=== PATIENT | female | born 1935 | race Hispanic/Latino ===

== ENCOUNTER 2017-09-03 15:32 | Inpatient (IN) | payer MEDICARE, BC ==
[2017-09-03 15:32] VITALS: BMI 19.5
[2017-09-03] MEDS ORDERED: Morphine 4 mg/ml ISec IVP STA (16:00)
--- NOTE | 2017-09-03 16:07 | ED PDOC ---
Arrival/HPI - General Chief Complaint: Abdominal Pain Time Seen by Provider: 09/03/17 15:58 - History of Present Illness Narrative History of Present Illness (Text): 81 y/o F c PMHx dementia, pelvic mass with metastases presents from [place] for further evaluation and treatment of malignancy. Ovarian mass had previously ruptured, with build up of ascites. Patient was evaluated at [facility] in [place], [place] where it was determined that she could not have an operation. Patient was in hospice care with DNR/DNI/DNH orders. , patient 's proxy, has since rescinded the hospice order and would like patient to be further treated in hospital. Patient denies pain, dyspnea, or discomfort. She is unaware of where she is or why she is here. Past Medical History - Infectious Disease Hx of Infectious Diseases: None - Cardiac Hx Pacemaker: No - Pulmonary Hx Respiratory Disorders: No - Neurological Hx Dementia: Yes - HEENT Hx HEENT Disorder: No - Renal Hx Renal Disorder: No - Endocrine/Metabolic Hx Endocrine Disorders: No - Hematological/Oncological Hx Cancer: Yes (pelvic) - Integumentary Hx Dermatological Disorder: No - Musculoskeletal/Rheumatological Hx Falls: Yes - Gastrointestinal Hx Gastrointestinal Disorders: Yes Other/Comment: distended abdomen - Genitourinary/Gynecological Hx Genitourinary Disorders: No - Psychiatric Hx Psychophysiologic Disorder: No Hx Substance Use: No - Surgical History Hx Mastectomy: No - Anesthesia Hx Anesthesia Reactions: No Hx Malignant Hyperthermia: No Family/Social History Family/Social History: No Known Family HX Smoking Status: Never Smoked Hx Alcohol Use: No Hx Substance Use: No Allergies/Home Meds Allergies/Adverse Reactions: Allergies No Known Allergies Allergy (Unverified 08/08/17 10:01) Home Medications: Home Meds Medication Instructions Recorded Confirmed Acetaminophen [Tylenol 120mg supp] 650 mg PO Q4H PRN 09/03/17 09/03/17 Albuterol/Ipratropium [Duoneb 3 1 vial IH Q8H PRN 09/03/17 09/03/17 mg/0.5 mg (3 ml) UD] Lorazepam [Lorazepam Intensol] 0.5 ml SL Q6H PRN 09/03/17 09/03/17 Morphine Sulfate [Morphine Oral 0.25 ml SL Q6H PRN 09/03/17 09/03/17 Soln] Review of Systems - Review of Systems Systems not reviewed;Unavailable: Dementia Physical Exam - Physical Exam Narrative Physical Exam (Text): Gen: NAD Head: Atraumatic Eyes: No scleral icterus ENT: MMM Neck: Supple Chest: No tenderness CV: Regular rate Lungs: CTA b/l Abd: Distended, large firm palpable mass. No obvious tenderness Extremities: Lower extremities in padding, ecchymoses to bilateral arms Skin: As above Neuro: Alert, oriented x 1. Vital Signs Temp Pulse Resp BP Pulse Ox 09/03/17 17:57 79 18 113/78 97 09/03/17 15:52 98.2 F 81 18 97 09/03/17 15:32 97 H 18 115/86 97 Medical Decision Making ED Course and Treatment: Morphine administered for chronic pain. EKG Sinus rhythm 100 bpm, no ST elevations, poor baseline. Dr. Kraft agrees with admission to his service, recommends Dr. Francois Grover be consulted for ascites drainage. Pending CT, then admit to Dr. Kraft. Signed out to ED night doctor at change of shift. - Lab Interpretations Lab Results: 09/03/17 17:34 09/03/17 17:34 Lab Results 09/03/17 17:34: Blood Type O POSITIVE, Antibody Screen Negative, BBK History Checked Patient has bt 09/03/17 17:34: Sodium 164 H*, Potassium 3.0 L, Chloride 121 H, Carbon Dioxide 28, Anion Gap 18, BUN 17, Creatinine 0.4 L, Est GFR ( Amer) > 60, Est GFR (Non-Af Amer) > 60, Random Glucose 88, Calcium 8.7, Total Bilirubin 0.8, AST 18, ALT 19, Alkaline Phosphatase 100, Total Protein 6.3, Albumin 2.6 L, Globulin 3.7, Albumin/Globulin Ratio 0.7 L 09/03/17 17:34: PT 16.3 H, INR 1.42 H, APTT 42.5 H 09/03/17 17:34: WBC 17.0 H, RBC 3.12 L, Hgb 8.3 L, Hct 28.3 L, MCV 90.7, MCH 26.6, MCHC 29.3 L, RDW 16.8 H, Plt Count 365, MPV 9.9, Gran % 88.5 H, Lymph % ( Auto) 5.5 L, [place] % (Auto) 4.6, Eos % (Auto) 1.3 L, Baso % (Auto) 0.1, Gran # 15.07 H, Lymph # (Auto) 0.9 L, [place] # (Auto) 0.8 H, Eos # (Auto) 0.2, Baso # ( Auto) 0.01 - RAD Interpretation Radiology Orders: 09/03/17 15:58 ABD & PELVIS IV CONTRAST ONLY [CT] Stat CHEST PORTABLE [RAD] Stat - Medication Orders Current Medication Orders: Discontinued Medications Morphine Sulfate (Morphine) 2 mg IVP STAT STA Stop: 09/03/17 16:01 Disposition/Present on Arrival - Present on Arrival Any Indicators Present on Arrival: No History of DVT/PE: No History of Uncontrolled Diabetes: No Urinary Catheter: No History of Decub. Ulcer: No History Surgical Site Infection Following: None - Disposition Have Diagnosis and Disposition been Completed?: Yes Diagnosis: Ovarian mass, Hypernatremia Disposition Time: 19:02 Condition: GUARDED Forms: [employer] (Italian)
[2017-09-03 18:04] LABS: BASO # 0.01 K/mm3 (0.0-2.0); BASO % 0.1 % (0.0-3.0); EOS # 0.2 (0.0-0.7); EOS % 1.3 % (1.5-5.0); GRAN # 15.07 (1.4-6.5); GRAN % 88.5 % (50.0-68.0); HEMOGLOBIN 8.3 g/dL (12.0-16.0); LYMPH # 0.9 (1.2-3.4); LYMPH % 5.5 % (22.0-35.0); MEAN CELL VOLUME 90.7 fl (80.0-105.0); MEAN CORPUSCULAR HEMOGLOBIN 26.6 pg (25.0-35.0); MEAN CORPUSCULAR HGB CONC 29.3 g/dl (31.0-37.0); MEAN PLATELET VOLUME 9.9 fl (7.0-11.0); MONO # 0.8 (0.1-0.6); MONO % 4.6 % (1.0-6.0); RBC 3.12 10^6/uL (3.5-6.1); RED CELL DISTRIBUTION WIDTH 16.8 % (11.5-14.5)
[2017-09-03 18:11] LABS: INR 1.42 (0.93-1.08); PARTIAL THROMBOPLASTIN TIME 42.5 Seconds (25.1-36.5); PROTHROMBIN TIME 16.3 SECONDS (9.4-12.5)
[2017-09-03 18:25] LABS: ALB/GLOB RATIO 0.7 (1.1-1.8); ALBUMIN 2.6 g/dL (3.0-4.8); ALT/SGPT 19 U/L (7-56); AST/SGOT 18 U/L (14-36); BLOOD UREA NITROGEN 17 mg/dL (7-21); CALCIUM 8.7 mg/dL (8.4-10.5); GFR AFRICAN-AMERICAN > 60; GFR NON-AFRICAN AMERICAN > 60
[2017-09-03] MEDS ORDERED: Iohexol 350 MG/100 ML VIAL ONE (19:28)
--- NOTE | 2017-09-03 21:48 | ED PDOC ---
Physical Exam Vital Signs Temp Pulse Resp BP Pulse Ox 09/03/17 17:57 79 18 113/78 97 09/03/17 15:52 98.2 F 81 18 97 09/03/17 15:32 97 H 18 115/86 97 Medical Decision Making ED Course and Treatment: 09/03/17 19:00 Case endorsed to me by yoshi Smith CT scan and hospital admission. 09/04/17 00:24 CT Abdomen and Pelvis shows: Lung bases: Moderate bilateral pleural effusions are identified. Consolidations are seen within both lower lobes, consistent with atelectatic change or infiltrates. Heart: There is coronary artery calcification. ABDOMEN: Liver: There is mild lobulation of the hepatic contour, suggestive of hepatocellular disease and cirrhosis. Gallbladder and bile ducts: No calcified stones. Pancreas: Normal contour, without acute peripancreatic stranding. Spleen: No splenomegaly. Adrenals: No mass. Kidneys and ureters: There is stable parenchymal scarring of the right kidney at the midpole. An additional linear band of hypodensity is seen involving the right renal cortex at the midpole, suggestive of parenchymal scarring or infarct. There is no hydronephrosis bilaterally. Stomach and bowel: Air-fluid levels are identified within the colon, new compared to the prior study. Obstruction cannot be excluded. There is mild wall thickening of a small bowel loop within the central abdomen, suggestive of enteritis. PELVIS: Appendix: The appendix is not visualized. Bladder: A Boss catheter is visualized within the bladder with foci of gas. The bladder is decompressed. These foci of gas are presumed to be iatrogenic. Reproductive: There is a large complex multiloculated cystic mass or masses centrally within the pelvis and lower abdomen. This measures approximately 17.9 x 11.7 x 18.2 cm. There is a slight increase in size compared to the prior study. Abdominal and pelvic ascites is again visualized, without significant progression. This fluid can be contributed by extravasation of fluid from the cystic mass within the abdomen and pelvis. ABDOMEN and PELVIS: Intraperitoneal space: See above. Bones/joints: Streaking artifact is associated with a right hip prosthesis there Hypertrophic degenerative changes are noted within the spine. There is scoliosis of the thoraco-lumbar spine. Vasculature: There is atherosclerotic calcification of the abdominal aorta. No abdominal aortic aneurysm. Lymph nodes: No enlarged lymph nodes. IMPRESSION: 1. There is a large complex multiloculated cystic mass or masses centrally within the pelvis and lower abdomen. This measures approximately 17.9 x 11.7 x 18.2 cm. There is a slight increase in size compared to the prior study. 2. Abdominal and pelvic ascites is again visualized, without significant progression. This fluid can be contributed by extravasation of fluid from the cystic mass within the abdomen and pelvis. 3. There is mild lobulation of the hepatic contour, suggestive of hepatocellular disease and cirrhosis. 4. There is stable parenchymal scarring of the right kidney at the midpole. An additional linear band of hypodensity is seen involving the right renal cortex at the midpole, suggestive of parenchymal scarring or infarct. 5. Air-fluid levels are identified within the colon, new compared to the prior study. Obstruction cannot be excluded. Clinical correlation is recommended. 6. There is mild wall thickening of a small bowel loop within the central abdomen, suggestive of enteritis. 7. Moderate bilateral pleural effusions are identified. Consolidations are seen within both lower lobes, consistent with atelectatic change or infiltrates. 8. Additional CT findings described above. 09/04/17 00:[address] Kraft, who is aware and agrees with plan. Pt admitted to [facility] for ascites under Dr. Kraft's service. - Lab Interpretations Lab Results: 09/03/17 17:34 09/03/17 17:34 Lab Results 09/03/17 22:13: Urine Color Dark yellow, Urine Appearance Slight-cloudy, Urine pH 6.0, Ur Specific [place] >= 1.030, Urine Protein 100 H, Urine Glucose (UA) Negative, Urine Ketones 40 H, Urine Blood Large H, Urine Nitrate Positive H, Urine Bilirubin Moderate H, Urine Urobilinogen 2.0 H, Ur Leukocyte Esterase Trace H, Urine RBC 1 - 3, Urine WBC 5 - 10, Ur Epithelial Cells 4 - 5, Urine Bacteria Small, Hyaline Casts 0 - 2 09/03/17 17:34: Blood Type O POSITIVE, Antibody Screen Negative, BBK History Checked Patient has bt 09/03/17 17:34: Sodium 164 H*, Potassium 3.0 L, Chloride 121 H, Carbon Dioxide 28, Anion Gap 18, BUN 17, Creatinine 0.4 L, Est GFR ( Amer) > 60, Est GFR (Non-Af Amer) > 60, Random Glucose 88, Calcium 8.7, Total Bilirubin 0.8, AST 18, ALT 19, Alkaline Phosphatase 100, Total Protein 6.3, Albumin 2.6 L, Globulin 3.7, Albumin/Globulin Ratio 0.7 L 09/03/17 17:34: PT 16.3 H, INR 1.42 H, APTT 42.5 H 09/03/17 17:34: WBC 17.0 H, RBC 3.12 L, Hgb 8.3 L, Hct 28.3 L, MCV 90.7, MCH 26.6, MCHC 29.3 L, RDW 16.8 H, Plt Count 365, MPV 9.9, Gran % 88.5 H, Lymph % ( Auto) 5.5 L, [place] % (Auto) 4.6, Eos % (Auto) 1.3 L, Baso % (Auto) 0.1, Gran # 15.07 H, Lymph # (Auto) 0.9 L, [place] # (Auto) 0.8 H, Eos # (Auto) 0.2, Baso # ( Auto) 0.01 - RAD Interpretation Radiology Orders: 09/03/17 15:58 ABD & PELVIS IV CONTRAST ONLY [CT] Stat CHEST PORTABLE [RAD] Stat Joiner Helper: Radiologist - Medication Orders Current Medication Orders: Discontinued Medications Morphine Sulfate (Morphine) 2 mg IVP STAT STA Stop: 09/03/17 16:01 Last Admin: 09/03/17 22:23 Dose: 2 mg MAR Pain Assessment Document 09/03/17 22:23 LA (Rec: 09/03/17 22:24 LA [id number]) Pain Reassessment Is this a pain reassessment? Yes Sleep Is patient sleeping during reassessment? No Presence of Pain Presence of Pain Yes Pain Scale Used Pain Scale Used Numeric Location Left, Right or Bilateral Right Pain Location Body Site Abdomen IVP Administration Document 09/03/17 22:23 LA (Rec: 09/03/17 22:24 LA [id number]) Charges for Administration # of IVP Administrations 1 Morphine Sulfate (Morphine) 2 mg IVP STAT STA Stop: 09/03/17 22:21 Last Admin: 09/03/17 22:21 Dose: 2 mg MAR Pain Assessment Document 09/03/17 22:21 LA (Rec: 09/03/17 22:50 LA [id number]) Pain Reassessment Is this a pain reassessment? Yes Sleep Is patient sleeping during reassessment? No Presence of Pain Presence of Pain Yes Pain Scale Used Pain Scale Used Numeric Location Left, Right or Bilateral Right Pain Location Body Site Abdomen Description Pain Behavior Moaning IVP Administration Document 09/03/17 22:21 MAGUI (Rec: 09/03/17 22:50 MAGUI [id number]) Charges for Administration # of IVP Administrations 1 Disposition/Present on Arrival - Present on Arrival Any Indicators Present on Arrival: No History of DVT/PE: No History of Uncontrolled Diabetes: No Urinary Catheter: No History of Decub. Ulcer: No History Surgical Site Infection Following: None - Disposition Have Diagnosis and Disposition been Completed?: Yes Diagnosis: Ovarian mass, Hypernatremia Disposition: HOSPITALIZED Disposition Time: 00:20 Condition: GUARDED
[2017-09-03] MEDS: Morphine 4 mg/ml ISec IVP STA (22:21)
[2017-09-03 22:57] LABS: URINE BILIRUBIN MODERATE (NEGATIVE); URINE BLOOD LARGE (NEGATIVE); URINE GLUCOSE (UA) NEGATIVE (NEGATIVE); URINE LEUKOCYTE ESTERASE TRACE Leu/uL (NEGATIVE); URINE PROTEIN 100 mg/dL (<30 mg/dL)
[2017-09-03 23:07] LABS: URINE APPEARANCE SLIGHT-CLOUDY (CLEAR); URINE COLOR DARK YELLOW (YELLOW)
[2017-09-03 23:19] LABS: URINE BACTERIA SMALL (NEG); URINE HYALINE CAST 0 - 2 /hpf
--- NOTE | 2017-09-04 00:25 | CT ---
EXAM: CT Abdomen and Pelvis With Intravenous Contrast EXAM DATE/TIME: 09/03/2017 3:58 PM CLINICAL HISTORY: The patient age is 81 years old and is female; Signs and symptoms; Other: Swelling; Additional info: Abdominal swelling Facility exam id and description: Ct abdpelciv abd pelvis iv contrast only TECHNIQUE: Axial computed tomography images of the abdomen and pelvis with intravenous contrast. All CT scans at this facility use one or more dose reduction techniques, viz.: automated exposure control; ma/kV adjustment per patient size (including targeted exams where dose is matched to indication; i.e. head); or iterative reconstruction technique. Coronal and sagittal reformatted images were created and reviewed. CONTRAST: 100 mL of omnipaque 350 administered intravenously. COMPARISON: CT - CHEST,ABD,PEL W/IV CONT ONLY 2017-08-20 14:14 FINDINGS: Lung bases: Moderate bilateral pleural effusions are identified. Consolidations are seen within both lower lobes, consistent with atelectatic change or infiltrates. Heart: There is coronary artery calcification. ABDOMEN: Liver: There is mild lobulation of the hepatic contour, suggestive of hepatocellular disease and cirrhosis. Gallbladder and bile ducts: No calcified stones. Pancreas: Normal contour, without acute peripancreatic stranding. Spleen: No splenomegaly. Adrenals: No mass. Kidneys and ureters: There is stable parenchymal scarring of the right kidney at the midpole. An additional linear band of hypodensity is seen involving the right renal cortex at the midpole, suggestive of parenchymal scarring or infarct. There is no hydronephrosis bilaterally. Stomach and bowel: Air-fluid levels are identified within the colon, new compared to the prior study. Obstruction cannot be excluded. There is mild wall thickening of a small bowel loop within the central abdomen, suggestive of enteritis. PELVIS: Appendix: The appendix is not visualized. Bladder: A Boss catheter is visualized within the bladder with foci of gas. The bladder is decompressed. These foci of gas are presumed to be iatrogenic. Reproductive: There is a large complex multiloculated cystic mass or masses centrally within the pelvis and lower abdomen. This measures approximately 17.9 x 11.7 x 18.2 cm. There is a slight increase in size compared to the prior study. Abdominal and pelvic ascites is again visualized, without significant progression. This fluid can be contributed by extravasation of fluid from the cystic mass within the abdomen and pelvis. ABDOMEN and PELVIS: Intraperitoneal space: See above. Bones/joints: Streaking artifact is associated with a right hip prosthesis there Hypertrophic degenerative changes are noted within the spine. There is scoliosis of the thoraco-lumbar spine. Vasculature: There is atherosclerotic calcification of the abdominal aorta. No abdominal aortic aneurysm. Lymph nodes: No enlarged lymph nodes. IMPRESSION: 1. There is a large complex multiloculated cystic mass or masses centrally within the pelvis and lower abdomen. This measures approximately 17.9 x 11.7 x 18.2 cm. There is a slight increase in size compared to the prior study. 2. Abdominal and pelvic ascites is again visualized, without significant progression. This fluid can be contributed by extravasation of fluid from the cystic mass within the abdomen and pelvis. 3. There is mild lobulation of the hepatic contour, suggestive of hepatocellular disease and cirrhosis. 4. There is stable parenchymal scarring of the right kidney at the midpole. An additional linear band of hypodensity is seen involving the right renal cortex at the midpole, suggestive of parenchymal scarring or infarct. 5. Air-fluid levels are identified within the colon, new compared to the prior study. Obstruction cannot be excluded. Clinical correlation is recommended. 6. There is mild wall thickening of a small bowel loop within the central abdomen, suggestive of enteritis. 7. Moderate bilateral pleural effusions are identified. Consolidations are seen within both lower lobes, consistent with atelectatic change or infiltrates. 8. Additional CT findings described above.
[2017-09-04] MEDS ORDERED: Sodium Chloride 0.9% 1,000 ML IV STA (00:38)
[2017-09-04] MEDS: Morphine 4 mg/ml ISec IVP STA (01:42)
--- NOTE | 2017-09-04 08:08 | RAD ---
HISTORY: abd pain COMPARISON: Portable chest 08/20/2017. FINDINGS: LUNGS: Left PICC unchanged in position. Mild left pleural effusions now appreciated with underlying airspace disease not excluded the left base medially. Trace right pleural effusion is evident. The right basilar atelectasis or infiltrate is identified. PLEURA: No significant pleural effusion identified, no pneumothorax apparent. CARDIOVASCULAR: Stable cardiac silhouette with borderline pulmonary venous congestion nevertheless. OSSEOUS STRUCTURES: No significant abnormalities. VISUALIZED UPPER ABDOMEN: Normal. OTHER FINDINGS: None. IMPRESSION: Borderline CHF. Mild bilateral pleural effusions seen greater the left and right sides. Limited right basilar atelectasis is favored over with infiltrate with medial basilar airspace disease not excluded.
--- NOTE | 2017-09-04 10:15 | CARD ---
APPROVED REPORT EKG Measurement Heart [id number] <Conclusion> Sinus tachycardia Nonspecific ST and T wave abnormality Electrical artifact present
[2017-09-04] MEDS: Dextrose 5%/0.45% NS 1,000 ML IV SCH ×2 (13:40→21:24)
--- NOTE | 2017-09-05 03:40 | PN ---
DATE: 09/04/2017 The patient seen this morning in room 362, bed 1. She is resting comfortably in bed. Marked lab abnormalities were noted with sodium over 160 as well as elevated BUN. She is receiving normal saline at 100 mL an hour. She appears to be near euvolemic state at this time, so I will change her IV's over to D5 and a half. Repeat morning labs. I spoke with the patient's at great length. In view of the diagnosis of the ovarian CA, do not resuscitate order was written on chart and I also requested a consult with Dr. Francois Grover for possible paracentesis if this will provide the patient with some relief. I asked Dr. Samson, renowned oncologist, to consult as well to see if there is anything that he can do for this unfortunate woman and Palliative Care consultation with Ching Donis was also requested. DNR order written. We will continue to treat and focus on comfort measures and correct her electrolyte abnormalities. Surendra Kraft MD
--- NOTE | 2017-09-05 03:49 | CON ---
DATE: 09/04/2017 This is [facility] consult on the medical floor. For Dr. Samson, CHIEF COMPLAINT: Ovarian CA history. HISTORY OF PRESENT ILLNESS: The patient is an 81-year-old female seen lying awake in bed, lethargic, but arousable with request from her primary doctor, Dr. Kraft for evaluation of her malignancy. The patient appears to be in no acute distress with the records reviewed, labs reviewed and history obtained from previous records from primary doctor with the patient reporting that she denies any pain and is not cold, requiring another blanket at this time. ALLERGIES: NO KNOWN ALLERGIES. MEDICATIONS: The patient's medicines at this point include IV D5 half normal saline, Lasix, Tylenol with analgesics as indicated. FAMILY HISTORY AND SOCIAL HISTORY: She is , nonsmoker, non-ethanolic. Otherwise, noncontributory. REVIEW OF SYSTEMS: Twelve-point review of systems was done, which was negative to questioning except for items mentioned in the history of present illness. PAST MEDICAL HISTORY: The patient's past medical history is significant for recent falls with recently diagnosed ovarian CA with dementia. OBJECTIVE/PHYSICAL EXAMINATION VITAL SIGNS: Temperature 97.2, pulse 92, respirations 21, blood pressure 115/57, pulse ox 97%. HEENT: Unremarkable. NECK: Supple. HEART: Regular rate. Occasional ectopic beat. LUNGS: Decreased breath sounds at the bases. ABDOMEN: Distended with minimal tenderness to general palpation with ascitic fluid wave. EXTREMITIES: No edema. SKIN: Warm and dry. NEUROLOGIC: The patient is lethargic, but arousable. Answers questions after a brief lapse. LABORATORY DATA: The patient's labs were done. White blood cell count of 17,000, hemoglobin is 8.3, hematocrit 28.3, platelet count of 365,000. Chem metabolic panel showing a sodium of 164, potassium of 3, chloride of 121 with an albumin of 2.6. Her INR is 1.42. Urine specimen showed large amount of blood, positive to nitrite, moderate bilirubin. The patient's other tests included an EKG, which was read as sinus tachycardia, nonspecific ST-T changes, electric artifact present. Her chest x-ray was done. It was read as borderline CHF, mild bilateral pleural effusion seen greater on the left than right sides, limited right basilar atelectasis favored over infiltrate with medial basilar airspace disease not excluded. The patient did have a CAT scan of her abdomen and pelvis. It was read as large complex multiloculated cystic mass or masses centrally within the pelvis and lower abdomen measuring approximately 17.9 x 11.7 x 18.2 cm with a slight increase in size compared to prior study. Abdominal and pelvic ascites again visualized without significant progression. Fluid can be contributed to the extravasation of fluid from the cystic mass within the abdomen and pelvis. There is mild lobulation of the hepatic contour suggestive of hepatic with cirrhosis. There is stable parenchymal scarring of the right kidney at the midpole, additional linear band hyperdense was seen involving the right renal cortex suggested parenchymal scarring or infarct. He had fluid levels identified within the colon, new compare with the prior studies, cannot be excluded. Clinical correlation recommended. Mild wall thickening of the small bowel loop within the central abdomen suggestive of enteritis, moderate bilateral pleural effusions were identified. Consolidations were seen within both lower lobes consistent with atelectatic change or infiltrates, additional CT findings as above. The patient did have a recent hospitalization where she had a tissue pathology done for the femoral head for a fracture, displaced right hip fracture with bipolar right hip prosthesis with femoral head fracture site. The patient's other recent testing included a CA125, which was done on 08/08/2017 of 122 along with a TSH, which was 0.3 on 08/12/2017 with the dramatically changed sodium of 164, previous sodium on 08/26/2017 was 148. 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 She is do not resuscitate/do not intubate. PLAN: The plan for this patient after conversation with Dr. Samson is to determine the course of treatment for this patient with consults recommended for Dr. Francois Grover for a palliative paracentesis with reconsideration for more aggressive treatment as per the patient's and family's wishes after consultation with her attending doctor. The prognosis for this patient is poor. We will monitor clinically and with more aggressive recommendations as indicated with repeat of her labs in a.m. as per Dr. Kraft. This is a complex patient with a comprehensive medically necessary and appropriate visit carried out in excess of 40 minutes [id number] time, also reviewing records and conversations held as above. Deshawn Piña MD
[2017-09-05] MEDS: Dextrose 5%/0.45% NS 1,000 ML IV SCH (05:36)
[2017-09-05 06:23] LABS: BASO # 0.02 K/mm3 (0.0-2.0); BASO % 0.2 % (0.0-3.0); EOS # 0.4 (0.0-0.7); EOS % 3.2 % (1.5-5.0); GRAN # 10.51 (1.4-6.5); GRAN % 85.4 % (50.0-68.0); HEMOGLOBIN 7.2 g/dL (12.0-16.0); LYMPH # 0.9 (1.2-3.4); LYMPH % 7.5 % (22.0-35.0); MEAN CELL VOLUME 89.4 fl (80.0-105.0); MEAN CORPUSCULAR HEMOGLOBIN 26.4 pg (25.0-35.0); MEAN CORPUSCULAR HGB CONC 29.5 g/dl (31.0-37.0); MEAN PLATELET VOLUME 9.9 fl (7.0-11.0); MONO # 0.5 (0.1-0.6); MONO % 3.7 % (1.0-6.0); RBC 2.73 10^6/uL (3.5-6.1); RED CELL DISTRIBUTION WIDTH 16.8 % (11.5-14.5); WHITE BLOOD COUNT 12.3 10^3/ul (4.5-11.0)
[2017-09-05 07:00] LABS: ALB/GLOB RATIO 0.6 (1.1-1.8); ALBUMIN 2.1 g/dL (3.0-4.8); ALT/SGPT 17 U/L (7-56); AST/SGOT 16 U/L (14-36); BLOOD UREA NITROGEN 15 mg/dL (7-21); CALCIUM 8.1 mg/dL (8.4-10.5); GFR AFRICAN-AMERICAN > 60; GFR NON-AFRICAN AMERICAN > 60
--- NOTE | 2017-09-05 10:12 | CP.PCM.CON ---
History of Present Illness - History of Present Illness History of Present Illness: Palliative consult requested by Dr Amanda Kraft Reason: Goals of care 81 year old female with history of ovarian cancer, hip fracture s/p ORIF who was receiving hsoice care at [facility]. The patients rescinded hospice and had her brought to ED for evaluation of weakness, anorexia, dyspahgia.Chest x ray showing mild bilateral pleural effusions, L> R. CT of abdomen reveals a large cystic mass within the lower pelvis, ascites, hepatocellular disease, parenchymal scarring of right pole of kidney, air fluid levels within the colon and probable enteritis. Labs; WBC 17.0, Hgb 8.3,NA 164, calcium 8.7. PMHx:Ovarion cancer, dementia, hip fracture s/p ORIF, anasarca, dysphagia, deconditioning. Social History: Non smoker, no alcohol or drug use. . Family Hist: Non contributory. Advance Care Planning: The patient is DNR/DNI Review of Systems: As per HPI, unable to obtain review as patient is altered Past Patient History - Infectious Disease Hx of Infectious Diseases: None - Past Social History Smoking Status: Never Smoked - CARDIAC Hx Cardiac Disorders: No - PULMONARY Hx Respiratory Disorders: No - NEUROLOGICAL Hx Neurological Disorder: No - HEENT Hx HEENT Problems: No - RENAL Hx Chronic Kidney Disease: No - ENDOCRINE/METABOLIC Hx Endocrine Disorders: No - HEMATOLOGICAL/ONCOLOGICAL Hx Cancer: Yes (pelvic) - INTEGUMENTARY Hx Dermatological Problems: No - MUSCULOSKELETAL/RHEUMATOLOGICAL Hx Musculoskeletal Disorders: Yes Hx Falls: Yes - GASTROINTESTINAL Hx Gastrointestinal Disorders: Yes Other/Comment: Ascites - GENITOURINARY/GYNECOLOGICAL Hx Genitourinary Disorders: No - PSYCHIATRIC Hx Psychophysiologic Disorder: No Hx Substance Use: No - SURGICAL HISTORY Hx Surgeries: Yes Hx Orthopedic Surgery: Yes (R hip ORIF) - ANESTHESIA Hx Anesthesia Reactions: No Hx Malignant Hyperthermia: No Meds Allergies/Adverse Reactions: Allergies Allergy/AdvReac Type Severity Reaction Status Date / Time No Known Allergies Allergy Unverified 08/08/17 10:01 - Medications Medications: Current Medications Acetaminophen (Tylenol 325mg Tab) 650 mg PO Q4H PRN PRN Reason: Pain, Mild (1-3) Furosemide (Lasix) 40 mg IVP DAILY MARY ALICE Last Admin: 09/05/17 09:46 Dose: Not Given Dextrose/Sodium Chloride (Dextrose 5%/0.45% Ns 1000 Ml) 1,000 mls @ 120 mls/hr IV .Q8H20M MARY ALICE Last Admin: 09/05/17 05:36 Dose: 120 mls/hr Potassium Chloride (Potassium Chloride 20 Meq/100 Ml) 20 meq in 100 mls @ 50 mls/hr IVPB ONCE ONE Stop: 09/05/17 10:17 Last Admin: 09/05/17 08:50 Dose: 50 mls/hr Potassium Chloride (Potassium Chloride 20 Meq/100 Ml) 20 meq in 100 mls @ 50 mls/hr IVPB ONCE ONE Stop: 09/05/17 10:18 Last Admin: 09/05/17 09:48 Dose: 50 mls/hr Physical Exam - Constitutional Appears: Cachectic, Chronically Ill - Head Exam Head Exam: NORMAL INSPECTION - Eye Exam Eye Exam: Normal appearance, PERRL - ENT Exam ENT Exam: Mucous Membranes Moist, Normal Oropharynx - Neck Exam Neck exam: Positive for: Normal Inspection - Respiratory Exam Respiratory Exam: Decreased Breath Sounds, NORMAL BREATHING PATTERN - Cardiovascular Exam Cardiovascular Exam: REGULAR RHYTHM, +S1, +S2 - GI/Abdominal Exam GI & Abdominal Exam: Diminished Bowel Sounds, Distended, Firm - Extremities Exam Additional comments: 2 + bilateral lower extremity edema - Neurological Exam Neurological exam: Altered - Skin Skin Exam: Dry, Pallor - Additional Findings Additional findings: palliative performance scale rating 30 % Results - Vital Signs Recent Vital Signs: Last Vital Signs Temp 99.3 F 09/05/17 07:59 Pulse 99 H 09/05/17 07:59 Resp 20 09/05/17 07:59 BP 104/59 L 09/05/17 09:46 Pulse Ox 94 L 09/05/17 07:59 - Labs Result Diagrams: 09/05/17 06:00 09/05/17 06:00 Labs: Laboratory Results - last 24 hr 09/05/17 09/05/17 06:00 06:00 WBC 12.3 H D RBC 2.73 L Hgb 7.2 L Hct 24.4 L MCV 89.4 MCH 26.4 MCHC 29.5 L RDW 16.8 H Plt Count 298 MPV 9.9 Gran % 85.4 H Lymph % (Auto) 7.5 L Floyd % (Auto) 3.7 Eos % (Auto) 3.2 Baso % (Auto) 0.2 Gran # 10.51 H Lymph # (Auto) 0.9 L Floyd # (Auto) 0.5 Eos # (Auto) 0.4 Baso # (Auto) 0.02 Sodium 163 H* Potassium 2.4 L* Chloride 123 H Carbon Dioxide 30 Anion Gap 13 BUN 15 Creatinine 0.4 L Est GFR ( Amer) > 60 Est GFR (Non-Af Amer) > 60 Random Glucose 154 H Calcium 8.1 L Total Bilirubin 0.7 AST 16 ALT 17 Alkaline Phosphatase 85 Total Protein 5.4 L Albumin 2.1 L Globulin 3.3 Albumin/Globulin Ratio 0.6 L Assessment & Plan - Assessment and Plan (Free Text) Assessment: 81 year old female with history of advanced dementia, ovarian cancer and ascites who is admitted with anorexia, dyspahgia, ascites, hypernatremia and severe deconditioning. The patient grimaces and moans when touched or repositioned The patient and her spouse are known to me from previous admission. Although has been told that his 's prognosis poor and likely irreversible, he is not accepting of this information. believes that his can overcome this illness. The patient was evaluated at [facility] for possible ovarian debulking surgery but was not felt to be a viable candidate for procedure. The patient is bed bound, she has dyspahgia, she is cachectic. He was concerned about her becoming dehydrated while on hospice because she was not receiving IV fluids. states that he did not want his to whither away. I explained that the philosophy of hospice was to allow for a natural /comfortable . states he wants revaluated to see if there are any other treatment options. I explained that his has a terminal illness and that medical intervention will only prolong the inevitable. I offered him the option of hospice as GIP service here. not open to this idea, states he wants further testing done. Psychosocial support provided Time spent in conversation with regarding goals of care, 30 minutes Plan: Ascites: IR eval for paracentisis Hypernatremia: Do not give saline IVF's Dyspahgia: Speech and swallow eval Pain Management: Recommend Morphine 2 mg IV every 4 hours as needed Goals of care /palliative support i
--- NOTE | 2017-09-05 13:37 | PN ---
DATE: 09/05/2017 DAILY PROGRESS NOTE SUBJECTIVE: The patient is an 81-year-old female who was status post surgical repair of the hip fracture several weeks ago, also known to have a large ovarian mass with ascites, who was admitted to [facility] yesterday from the senior living after her who is proxy for her care rescinded DNR/DNI hospice orders. She had been complaining of abdominal pain. She was found to be severely anemic with a hemoglobin of 7.2 and her potassium was also depressed at 2.4 and sodium markedly elevated at 163. BUN and creatinine are 15 and 0.4 respectively. PHYSICAL EXAMINATION: VITAL SIGNS: Her blood pressure today is 124/59, temperature is 99.3 degrees Fahrenheit, and her heart rate is 99. GENERAL: When seen in bed, she is sleeping, she is poorly arousable. LUNGS: Clear anteriorly. There is some upper airway gurgling on expiration. HEART: Regular. No murmurs are appreciated. ABDOMEN: Soft and nontender. Positive for ascites and pelvic mass. So, potassium supplementation has been ordered. Two units of packed red blood cells are to be transfused. She failed a swallowing evaluation, so she will be kept n.p.o. She is on D5 and half normal saline at 120 mL an hour. She is also receiving Lasix for congestive heart failure and vascular congestion noted on chest x-ray. We are continuing to follow the patient. DNR/DNI order has been written. We are maintaining patient comfort levels. Mir Kraft MD
--- NOTE | 2017-09-05 13:40 | CP.PCM.PN ---
Subjective - Date & Time of Evaluation Date of Evaluation: 09/05/17 Time of Evaluation: 10:00 - Subjective Subjective: Heme Onc Progress note Patient was seen and examined at bedside. Pt resting comfortably, awake. No acute or adverse events as per nursing staff overnight. Pt NPO. ROS unavailable. Objective - Vital Signs/Intake and Output Vital Signs (last 24 hours): Temp Pulse Resp BP Pulse Ox 98.8 F 101 H 20 126/70 94 L 09/05/17 13:13 09/05/17 13:13 09/05/17 13:13 09/05/17 13:13 09/05/17 07:59 Intake and Output: 09/05/17 09/05/17 06:59 18:59 Intake Total 1440 0 Output Total 225 Balance 1215 0 - Medications Medications: Current Medications Acetaminophen (Tylenol 325mg Tab) 650 mg PO Q4H PRN PRN Reason: Pain, Mild (1-3) Furosemide (Lasix) 40 mg IVP DAILY MARY ALICE Last Admin: 09/05/17 09:46 Dose: Not Given Dextrose/Sodium Chloride (Dextrose 5%/0.45% Ns 1000 Ml) 1,000 mls @ 120 mls/hr IV .Q8H20M MARY ALICE Last Admin: 09/05/17 05:36 Dose: 120 mls/hr - Labs Labs: 09/05/17 06:00 09/05/17 06:00 PT 16.3 SECONDS (9.4-12.5) H 09/03/17 17:34 INR 1.42 (0.93-1.08) H 09/03/17 17:34 APTT 42.5 Seconds (25.1-36.5) H 09/03/17 17:34 - Constitutional Appears: No Acute Distress - Head Exam Head Exam: ATRAUMATIC, NORMAL INSPECTION, NORMOCEPHALIC - Eye Exam Eye Exam: EOMI, Normal appearance, PERRL Pupil Exam: Fixed - ENT Exam ENT Exam: Mucous Membranes Dry - Respiratory Exam Respiratory Exam: Decreased Breath Sounds, NORMAL BREATHING PATTERN - Cardiovascular Exam Cardiovascular Exam: RRR, +S1, +S2 - GI/Abdominal Exam GI & Abdominal Exam: Soft, Normal Bowel Sounds. absent: Tenderness - Neurological Exam Neurological Exam: Awake - Psychiatric Exam Psychiatric exam: Normal Affect, Normal Mood - Skin Skin Exam: Dry, Intact, Normal Color, Warm Assessment and Plan - Assessment and Plan (Free Text) Assessment: 81 F with a PMHx of ovarion cancer (not candidate for surgery) , dementia, hip fracture s/p ORIF, anasarca, and dysphagia Chest x ray showing mild bilateral pleural effusions, L> R. CT of abdomen reveals a large cystic mass within the lower pelvis, ascites, hepatocellular disease, parenchymal scarring of right pole of kidney, air fluid levels within the colon and probable enteritis. IR Dr Grover consulted for palliative paracentesis. Pt code status DNR/DNI maintained. Hypernatremic with IVF of D51/2 NS. Hypokalemic supplemented with K rider.
--- NOTE | 2017-09-05 18:06 | HP ---
HISTORY OF PRESENT ILLNESS: The patient is an 81-year-old female who was admitted to [facility] several weeks ago after multiple falls at home and an increasing abdominal girth. She was found to have a large ovarian mass in the abdomen. However, continued pain caused further repeat studies of her hip and this indeed was fractured. It was surgically repaired in the operating room by Dr. Mary, the Orthopedist. Postoperatively, the patient fails to thrive. She was felt too unstable and weak to undergo abdominal surgery for removal of the abdominal mass. After prolonged hospital stay, arrangements were made for her to be transferred to the [facility] for evaluation and possible removal of the ovarian mass. However, when there, again she was determined not to be a candidate for surgery and was transferred to a [facility] under DNR/DNI hospice care. However, over the past few days, the patient had increasing abdominal pain. The patient's who is her proxy rescinded the hospice care and had the patient transferred back to [facility] for treatment of her abdominal pain. The abdominal pain in the past was felt to be from the size of the tumor compressing her GI tract. The patient is known to have severe senile dementia, but no other past medical history. SOCIAL HISTORY: She never smoked. She is a nonalcoholic drinker. ALLERGIES: SHE HAS NO KNOWN MEDICAL ALLERGIES. MEDICATIONS: At the time of admission included Tylenol p.r.n. and DuoNeb nebulizer treatments on an as-needed basis. She is also receiving lorazepam 0.5 mg as needed and morphine sulfate for pain as needed. REVIEW OF SYSTEMS: Otherwise unremarkable. PHYSICAL EXAMINATION: VITAL SIGNS: Her blood pressure is 115/86, heart rate is 97, and she is afebrile. HEENT: The head, eyes, ears, nose, and throat are unremarkable. NECK: Supple with no lymphadenopathy, no goiter. LUNGS: Clear anteriorly and laterally. HEART: Regular. No murmurs are appreciated. ABDOMEN: Soft, distended. What was a palpable mass is no longer as apparent as before. Physical exam of the abdomen is positive for ascites. EXTREMITIES: Free of cyanosis, clubbing, or edema. NEUROLOGIC: The patient is confused. She is obtunded. She does not answer questions. LABORATORY DATA: Laboratory studies show that she is O+ type blood. White blood cell count is 17, hemoglobin and hematocrit are 8.3 and 28.3 respectively, platelet count is 365. Sodium is markedly elevated at 164, potassium is depressed at 3. Blood urea nitrogen is 17, creatinine is 0.4. Glucose is 88. Chest x-ray reveals borderline CHF, mild bilateral pleural effusions greater on the left than on the right. There was some right-sided basilar atelectasis versus infiltrate. CAT scan of the abdomen shows large complex multiloculated cystic mass or masses centrally within the pelvis and lower abdomen, they measure 17.9 x 11.7 x 18.2 cm. Abdominal and pelvic ascites is noted. There is mild lobulation of the hepatic contour suggestive of hepatocellular disease and cirrhosis. Air-fluid levels are identified within the colon, which is new compared to prior study, obstruction cannot be excluded. There is mild wall thickening of the small bowel loop within the central abdomen suggestive of enteritis. There are bilateral pleural effusions noted and consolidations are seen within both lower lobes consistent with atelectasis or infiltrates. So the patient is admitted with probable ovarian carcinoma, ascites, possible bowel obstructions, severe anemia, electrolyte imbalance. The patient will be reevaluated in the morning and followed closely. Blood transfusions are ordered as well as potassium supplementation. Mir Kraft MD
[2017-09-06 08:01] VITALS: BP 134/66; PULSE 97; RESP 21; TEMP 98.1; O2SAT 93
[2017-09-06 08:15] LABS: ALB/GLOB RATIO 0.7 (1.1-1.8); ALBUMIN 2.5 g/dL (3.0-4.8); ALT/SGPT 16 U/L (7-56); AST/SGOT 21 U/L (14-36); BLOOD UREA NITROGEN 18 mg/dL (7-21); CALCIUM 8.1 mg/dL (8.4-10.5); GFR AFRICAN-AMERICAN > 60; GFR NON-AFRICAN AMERICAN > 60
--- NOTE | 2017-09-06 08:18 | CP.PCM.PRO ---
Pronouncement of Note - Clinical Findings Physical Exam: No Response Verbal/Painful Stimuli, Absent Peripheral Pulses{ Carotid & Femoral}, Absent Heart & Breath Sounds, No Pupillary Light Reflex, No Corneal Reflex, Pupils Fixed & Dilated, Absence of Vital Signs - Pronouncement Time Time of Pronouncement of : 08:10 - Notifications Pronouncement Notifications: Family Notified, Atending Notified Repeater Operator Notified: No - Autopsy Autopsy Requested: No - [place] [id number]
--- NOTE | 2017-09-08 04:50 | DS ---
I would like the summary to be read as follows, if you would be so kind. HOSPITAL COURSE: The patient is an 81-year-old female who was hospitalized with a hip fracture and ovarian mass several weeks ago. She underwent surgical repair of the hip fracture. She was found to be unstable as far as abdominal/pelvic surgery for removal of the abdominal mass. She was anemic post surgery, the hemoglobin is 7.2. She also has a longstanding history of rather severe senile dementia. She is cared for by her living . During her hospital stay, the patient did well, was transferred to a subacute rehab facility. DNR/DNI status was written and she was placed on hospice care. However, at the subacute rehab facility, she developed abdominal pain. The became concerned, rescinded her hospice and DNR/DNI status and had the patient transferred to [facility], where she is once again admitted. After discussion with the , the DNR/DNI status ordered was written. She was severely anemic with a hemoglobin of 7.2 and transfusion of 2 units of packed red blood cells was written. She has severe electrolyte imbalance with a sodium of 163 and potassium of 2.4. She was receiving D5W and potassium supplements. From her senile dementia, the patient is essentially unresponsive in answering questions. She was awake and arousable but could not answer questions when asked yesterday. I received a phone call early this morning saying the patient was found unresponsive. She was evaluated by the house doctor and was pronounced at 08:10 in the morning. Cause of , severe senile dementia contributing factors or abdominal mass with ascites and anemia, electrolyte imbalance status post hip fracture. Mir Kraft MD
== END 2017-09-06 08:10 | DRG 755 ==
LOC: ED 15:32 → ERH 09-04 00:29 → 3RNO 09-04 02:11
PROVIDERS: ADMIT Internal Medicine; ATTEND Internal Medicine
PROC: 30233N1 Transfusion of Nonautologous Red Blood Cells into Peripheral Vein, Percutaneous Approach (ICD-10-PCS; principal; 2017-09-05)
DX: C56.9 Malignant neoplasm of unspecified ovary (principal); E87.0 Hyperosmolality and hypernatremia; R18.8 Other ascites; R64 Cachexia; Z68.1 Body mass index [BMI] 19.9 or less, adult; F03.90 Unspecified dementia, unspecified severity, without behavioral disturbance, psychotic disturbance, mood disturbance, and anxiety; E87.6 Hypokalemia; D64.9 Anemia, unspecified; I50.9 Heart failure, unspecified; Z66 Do not resuscitate; R29.6 Repeated falls; Z74.01 Bed confinement status; Z87.81 Personal history of (healed) traumatic fracture